=== PATIENT | female | born 1975 | race Caucasian/White ===

== ENCOUNTER 2017-03-31 12:58 | Outpatient (CLI) | payer OTHER | END 2017-03-31 19:22 | disposition home or self-care (01) | LOC: SMA 12:58 | PROVIDERS: ATTEND Family Medicine | DX: Z12.31 Encounter for screening mammogram for malignant neoplasm of breast (principal) | CPT/HCPCS: G0202 ==

== ENCOUNTER 2018-06-10 10:00 | Outpatient (CLI) | payer OTHER | END 2018-06-10 20:21 | disposition home or self-care (01) | LOC: SMA 10:00 | DX: Z12.31 Encounter for screening mammogram for malignant neoplasm of breast (principal) | CPT/HCPCS: 77067 ==

== ENCOUNTER 2019-07-12 13:48 | Outpatient (CLI) | payer OTHER | END 2019-07-12 17:51 | disposition home or self-care (01) | LOC: SMA 13:48 | PROVIDERS: ATTEND Family Medicine | DX: Z12.31 Encounter for screening mammogram for malignant neoplasm of breast (principal) | CPT/HCPCS: 77067 ==